=== PATIENT | male | born 1990 | race Two or more races ===

== ENCOUNTER 2023-10-31 07:27 | Emergency (ER) | payer OTHER ==
[~2023-10-31] VITALS: Ht 177.8 cm; Wt 79.4 kg
[2023-10-31 09:14] LABS: HEMATOCRIT 46.8 % (39.0-48.0); HEMOGLOBIN 16.6 g/dL (13-16.00); MEAN CELL VOLUME 87.8 fL (80.0-100.00); MEAN CORPUSCULAR HEMOGLOBIN 31.1 pg (27.00-32.0); MEAN CORPUSCULAR HGB CONC 35.4 g/dl (32.0-36.0); PLATELET COUNT 180 K/uL (150-450); RED BLOOD COUNT 5.33 M/uL (4.00-6.00); RED CELL DISTRIBUTION WIDTH 12.4 % (11.5-14.5)
[2023-10-31 09:34] LABS: CALCIUM 9.4 mg/dL (8.5-10.1); CREATININE SERUM 1.36 mg/dL (0.70-1.30); GFR 60.73; POTASSIUM 3.53 mEq/L (3.5-5.1)
== END 2023-10-31 12:15 | disposition home or self-care (01) ==
LOC: ER 07:28
PROVIDERS: Emergency Medicine
DX: R10.84 Generalized abdominal pain (principal); R11.10 Vomiting, unspecified; R19.7 Diarrhea, unspecified

== ENCOUNTER 2024-01-09 17:28 | Emergency (ER) | payer OTHER ==
[~2024-01-09] VITALS: Ht 175.3 cm; Wt 88.5 kg
[2024-01-09] MEDS ORDERED: hydrOXYzine PAMOATE 50 MG CAPSULE PO STA (19:26)
[2024-01-09] MEDS ORDERED: METHYLPREDNISOLONE SOD SUCC 125 MG VIAL IM STA (19:26)
== END 2024-01-09 22:36 | disposition home or self-care (01) ==
LOC: ER 17:29
DX: R53.81 Other malaise (principal); G51.0 Bell's palsy